=== PATIENT | male | born 2000 | race Caucasian/White ===

== ENCOUNTER 2021-09-07 08:38 | Emergency (ER) | payer BC ==
[2021-09-07 10:05] LABS: CARBON DIOXIDE,CO2 24.3 mmol/L (21.0-32.0); POTASSIUM,K 3.8 mmol/L (3.5-5.1)
[2021-09-07] MEDS ORDERED: Betamethasone Dipropionate/Clotrimazole 0.05-1% Crm 15 GM Tube TOP STA (12:03)
== END 2021-09-07 12:30 | disposition home or self-care (01) ==
LOC: MW.ED 08:38
DX: L08.0 Pyoderma (principal); F17.210 Nicotine dependence, cigarettes, uncomplicated; Z20.822 Contact with and (suspected) exposure to COVID-19; Z91.013 Allergy to seafood
CPT/HCPCS: 36415; 80053; 85025; 85652; 86140; 86592; 87635; 99283; A9270; U0002